=== PATIENT | male | born 1990 | race Caucasian/White ===

== ENCOUNTER 2018-01-01 16:27 | Emergency (ER) | payer MEDICAID ==
[~2018-01-01] VITALS: Ht 200.7 cm; Wt 125.0 kg
[~2018-01-01 16:27] MED LIST: CLIN150 PO; GLIP5 PO; GLIP5TAB8 PO; GLUCTAB PO; LEVEMIR SC; LEVEMIR SQ; METF500 PO
[2018-01-01 16:32] VITALS: BP 146/74; PULSE 111; RESP 16; TEMP 98.3; O2SAT 98
[2018-01-01] MEDS ORDERED: METF1000 PO (16:56)
[2018-01-01] MEDS ORDERED: LEVO50TA4 PO (16:56)
[2018-01-01] MEDS ORDERED: SIMV10TA PO (16:56)
[2018-01-01] MEDS ORDERED: GLIP5TAB8 PO (16:56)
[2018-01-01] MEDS ORDERED: LEVEMIR SQ (16:56)
--- NOTE | 2018-01-01 17:17 | RADRPT ---
EXAM DATE/TIME: 01/01/2018 16:58 [place] COMPARISON: No previous studies available for comparison. INDICATIONS : Open wound on lateral surface of left great toe for 2 months MEDICAL HISTORY : None. SURGICAL HISTORY : None. ENCOUNTER: Initial ACUITY: 2 months PAIN SCORE: 0/10 LOCATION: Left lateral great toe FINDINGS: Three view examination of the left foot demonstrates no soft tissue swelling, dislocation, or fractur e. The tarsal bones appear intact. Soft tissue defect evident. The interphalangeal and metatarsop halangeal joints are intact. The calcaneus is intact. No evidence for myelitis. CONCLUSION: Negative for osteomyelitis Juan Franks MD FACR on January 01, 2018 at 17:13 Board Certified Radiologist. This report was verified electronically.
--- NOTE | 2018-01-01 17:28 | PD ---
HPI Chief Complaint: Skin Problem Time Seen by Provider: 16:49 Travel History International Travel<30 days: No Contact w/Intl Traveler<30days: No Traveled to known affect area: No History of Present Illness HPI 27-year-old male complains of toe wound for 2 months. The left great toe has a area of skin breakdown which has not healed despite daily cleaning and irrigation. He does not recall how the wound started. The patient has diabetes , insulin-dependent, and reports compliance with dietary guidelines and insulin. He's had no fever. The wound is not painful. He has not taken antibiotics for it. He has yet to follow up with a primary care provider. Onset gradual. Timing constant. PFSH Past Medical History Blood Disorders: No Cardiovascular Problems: No High Cholesterol: Yes Diabetes: Yes Patient Takes Glucophage: Yes Diminished Hearing: No Gastrointestinal Disorders: No Genitourinary: No Immune Disorder: No Musculoskeletal: No Neurologic: No Psychiatric: No Reproductive: No Respiratory: No Thyroid Disease: Yes Influenza Vaccination: No ?: Not Past Surgical History Neurologic Surgery: Yes (SHUNT PLACED FOR HYDROCEPHALUS 2010) Other Surgery: Yes (2 surgeries for hydrocephalus) Social History Alcohol Use: Yes (rare) Tobacco Use: No Substance Use: No Allergies-Medications (Allergen,Severity, Reaction): Coded Allergies: No Known Allergies (Verified , 03/26/15) Reported Meds & Prescriptions Reported Meds & Active Scripts Active Bactrim DS (Sulfamethoxazole-Trimethoprim) 800-160 Mg Tab 1 Tab PO BID Reported Levemir Inj (Insulin Detemir) 1,000 unit/ 10 ML Vial 30 Units SQ HS Do not mix with any other Insulin. Simvastatin 10 Mg Tab 10 Mg PO DAILY Levothyroxine (Levothyroxine Sodium) 50 Mcg Tab 50 Mcg PO DAILY Glipizide 5 Mg Tab 5 Mg PO BIDAC Take 30 minutes before a meal Metformin (Metformin HCl) 1,000 Mg Tab 1,000 Mg PO BIDPC Review of Systems Except as stated in HPI: all other systems reviewed are Neg General / Constitutional: No: Fever Physical Exam Narrative GENERAL: 27 yo M, WNWD, NAD SKIN: Warm and dry. Overlying the medial aspect of the left great toe at the region of the interphalangeal articulation and towards the plantar aspect is extensive dry hardened skin with minimal erythema without tenderness or warmth or induration. 2+ DP bilaterally. HEAD: Atraumatic. Normocephalic. EYES: Pupils equal and round. No scleral icterus. No injection or drainage. ENT: No nasal bleeding or discharge. Mucous membranes pink and moist. NECK: Trachea midline. No JVD. CARDIOVASCULAR: Regular rate and rhythm. RESPIRATORY: No accessory muscle use. Clear to auscultation. Breath sounds equal bilaterally. GASTROINTESTINAL: Abdomen soft, non-tender, nondistended. Hepatic and splenic margins not palpable. MUSCULOSKELETAL: Extremities without clubbing, cyanosis, or edema. No obvious deformities. NEUROLOGICAL: Awake and alert. No obvious cranial nerve deficits. Motor grossly within normal limits. Five out of 5 muscle strength in the arms and legs. Normal speech. PSYCHIATRIC: Appropriate mood and affect; insight and judgment normal. Data Data Last Documented VS Vital Signs Date Time Temp Pulse Resp B/P (MAP) Pulse Ox O2 Delivery O2 Flow Rate FiO2 01/01/18 16:32 98.3 111 16 146/74 (98) 98 Orders Orders Foot, Complete ([id number]) (01/01/18 ) Ed Discharge Order (01/01/18 17:32) MDM Medical Decision Making Medical Screen Exam Complete: Yes Emergency Medical Condition: Yes Medical Record Reviewed: Yes Differential Diagnosis Osteomyelitis, cellulitis, abscess Narrative Course Last Impressions Foot X-Ray 01/01/18 0000 Signed Impressions: Service Date/Time: Monday, January 01, 2018 16:58 - CONCLUSION: Negative for osteomyelitis Juan Franks MD FACR Home wound care discussed. Follow up discussed. Pt ready for discharge. Diagnosis Primary Impression: Diabetic ulcer of toe Qualified Codes: E10.621 - Type 1 diabetes mellitus with foot ulcer; L97.529 - Non-pressure chronic ulcer of other part of left foot with unspecified severity Referrals: Wu Webber DPM call for appointment Med/Other Pt SpecificInfo: Prescription(s) given Scripts Sulfamethoxazole-Trimethoprim (Bactrim DS) 800-160 Mg Tab 1 TAB PO BID for Infection, #14 TAB 0 Refills Prov: Joseph Staton MD 01/01/18 Disposition: 01 DISCHARGE HOME Condition: Stable Joseph Staton MD January 01, 2018 17:28
[2018-01-01] MEDS ORDERED: BACT800T5 PO (17:34)
== END 2018-01-01 17:45 | disposition home or self-care (01) ==
LOC: PHED 16:27
DX: E10.621 Type 1 diabetes mellitus with foot ulcer (principal); L97.529 Non-pressure chronic ulcer of other part of left foot with unspecified severity; E78.00 Pure hypercholesterolemia, unspecified; E11.9 Type 2 diabetes mellitus without complications; E07.9 Disorder of thyroid, unspecified; Z79.899 Other long term (current) drug therapy; Z79.4 Long term (current) use of insulin
CPT/HCPCS: 73630; 99283